=== PATIENT | female | born 1945 | race Caucasian/White ===

== ENCOUNTER → 2016-06-23 | Outpatient (CLI) | payer OTHER ==
[~2016-06-23] MED LIST: AMLODIPINE BESYL5 MG PO; ASMANEX IH; ATIVAN PO; BENZONATATE PO; CELEXA20 MG PO; DARVOCET-N 1001 TAB PO; DIABETIC TUSSIN1 ML PO; DIPHENHYDRAMINE50 M1 PO; FLAGYL PO; LEVAQUIN PO; LEXAPRO PO; LORTAB 5MG PO; LOTREL 5/20 MG1 CAP PO; METHYLPREDNISOLONE PO; NASONEX17 GM; NORVASC PO; OMEPRAZOLE20 M2 PO; OMNICEF300 M1 PO; PATIENT'S PHARMACY; PROAIR HFA8.5 GM IH; PROAIR INH; PROTONIX PO; SINGULAIR PO; TUSSIONEX PENN473 ML PO; WELLBUTRIN PO; ZYRTEC10 M2 PO
--- NOTE | ~2016-06-23 | BD1 ---
[facility] A Service of [facility] & [facility] RADIOLOGY TEXT RESULTS PATIENT: RAHEL ZEPEDA LOCATION: [facility] : 43 UNIT #: [id number] AGE: [address]: Darian Epps MD SEX: F ORDER DR: [id number] [facility] [address] [place], [place] [address] [id number] MR#: [id number] Acc #: [id number] NAME: RAHEL ZEPEDA : 1945 SEX: F STUDY DATE/TIME: 06/23/2016 11:07 UNIT: [facility] ROOM: STUDY DESCRIPTION: BD Dexa Bone Dens 1+ Site Attending Physician: Darian Epps M.D. Referring Physician: Darian Epps M.D. Ordering Physician: Darian Epps M.D. Primary Care Physician: Herber Tomlinson M.D. MEDICAL IMAGING REPORT This report is preliminary unless electronic signature is present EXAM DXA scan, 06/23/2016. HISTORY Status post menopause with no hormone replacement therapy. Osteopenia. Hysterectomy in 2002. Hypertension with blood pressure medication for 30 years. Fracture of wrist in the last 10 years. FINDINGS Bone mineral density in the lumbar spine from L1-L4 is 0.947 g/cm2 which is 0.9 standard deviations below the mean when compared to the young adult reference population which is within the range of normal. This is 1.3 standard deviations above the mean when compared to the age-matched population. Bone mineral density in the left femoral neck was 0.688 g/cm2 which is 1.5 standard deviations below the mean when compared to the young adult reference population which is characteristic of osteopenia. This is 0.5 standard deviations above the mean when compared to the age-matched population. IMPRESSION Bone mineral density in the lumbar spine within the range of normal and within the left hip characteristic of osteopenia. Dictated by... Long Dey M.D. THIS IS AN ELECTRONICALLY VERIFIED REPORT Long Dey M.D. at 06/24/2016 2:25 PM KRT/tmw STS. [facility] A Service of [facility] & [facility] RADIOLOGY TEXT RESULTS PATIENT: RAHEL ZEPEDA LOCATION: [facility] #: [id number] : 43 UNIT #: [id number] AGE: [address]: Darian Epps MD SEX: F ORDER DR: TD: 06/23/2016 15:10 JOB #: [id number] MEDICAL IMAGING REPORT COPY
== END | disposition home or self-care (01) ==
LOC: CWCC 10:52
DX: Z13.820 Encounter for screening for osteoporosis (principal); M25.531 Pain in right wrist; M85.88 Other specified disorders of bone density and structure, other site
CPT/HCPCS: 77080

== ENCOUNTER 2016-09-14 17:24 | Emergency (ER) | payer OTHER ==
--- NOTE | ~2016-09-14 | CT4 ---
[facility] A Service of [facility] & [facility] RADIOLOGY TEXT RESULTS PATIENT: RAHEL ZEPEDA LOCATION: [facility] : 43 UNIT #: [id number] AGE: [address]: Rosalia Mcdonald MD SEX: F ORDER DR: [id number] [facility] [address] [place], [place] [address] [id number] MR#: [id number] Acc #: [id number] NAME: RAHEL ZEPEDA : 1945 SEX: F STUDY DATE/TIME: 09/14/2016 19:06 UNIT: [facility] ROOM: STUDY DESCRIPTION: CT Abd and Pelv Wo Cont Attending Physician: Rosalia Mcdonald M.D. Ordering Physician: Rosalia Mcdonald M.D. Primary Care Physician: Herber Tomlinson M.D. MEDICAL IMAGING REPORT This report is preliminary unless electronic signature is present EXAM CT scan of the abdomen and pelvis without contrast 09/14/2016 HISTORY Pelvic pain, unable to urinate since yesterday. Evaluate for obstructing renal calculus. TECHNIQUE Spiral CT was performed through the abdomen and pelvis without oral or intravenous contrast administration using renal stone protocol. This CT examination was performed with one or more of the following radiation dose reduction techniques: automatic exposure control, adjustment of mA and/or kV according to patient size, and iterative reconstruction. FINDINGS ABDOMEN: There is no obstructing renal or ureteral calculus. There is a 1 mm nonobstructing stone in the mid right kidney. The left kidney is normal. There is fatty infiltration of the liver. The spleen, pancreas, gallbladder and biliary tree and adrenal glands are normal. PELVIS: There is colonic diverticulosis without evidence of diverticulitis. The gut is otherwise unremarkable. No adenopathy is seen. There is no free fluid in the abdomen or pelvis. Images of the lung bases demonstrate a moderate-sized hiatal hernia. IMPRESSION 1. No obstructing renal or ureteral calculus. 1 mm nonobstructing stone right kidney. 2. Fatty infiltration of the liver. 3. Diverticulosis. No evidence of diverticulitis. 4. Moderate-sized hiatal hernia. STS. [facility] A Service of [facility] & [facility] RADIOLOGY TEXT RESULTS PATIENT: RAHEL ZEPEDA LOCATION: [facility] : 43 UNIT #: [id number] AGE: [address]: Rosalia Mcdonald MD SEX: F ORDER DR: Dictated by... Long Dey M.D. THIS IS AN ELECTRONICALLY VERIFIED REPORT Long Dey M.D. at 09/15/2016 10:41 AM ODETTE/ifeanyi TD: 09/15/2016 06:10 JOB #: [id number] MEDICAL IMAGING REPORT Page 1 of 1 COPY
[2016-09-14 18:00] LABS: URINE SOURCE CLEAN CATCH
[2016-09-14 18:19] LABS: URINE APPEARANCE TURBID; URINE BILIRUBIN NEG (NEG); URINE BLOOD 2+ (NEG); URINE COLOR DK YELLOW; URINE GLUCOSE NEG (NEG); URINE KETONE TRACE (NEG); URINE LEUKOCYTE ESTERASE 3+ (NEG); URINE NITRATE NEG (NEG); URINE PROTEIN 2+ (NEG); URINE SPECIFIC GRAVITY 1.023 (1.003-1.035)
[2016-09-14 18:22] LABS: CULTURE INDICATED? YES; URINE SQUAMOUS EPITHELIAL CELL NONE SEEN /[HPF]; UWBCS1 AUWI INNUM (0-5)
[2016-09-14 18:27] LABS: BASOPHIL% 0.6 % (0-2.5); DIFF IND NO; EOSINOPHIL# 0.2 X10e3 (0-0.7); EOSINOPHIL% 2.3 % (0.0-7.0); HEMATOCRIT 40.8 % (35.0-45.0); HEMOGLOBIN 14.1 gm/dL (12.0-16.0); LYMPHOCYTE# 1.3 X10e3 (1.0-3.5); MEAN CELL VOLUME 89.7 FL (83-96); MEAN CORPUSCULAR HEMOGLOBIN 30.9 PG (28-34); MEAN CORPUSCULAR HGB CONC 34.4 g/dL (30-36); MEAN PLATELET VOLUME 7.5 FL (6.5-11.5); MONOCYTE# 0.7 X10e3 (0-1.0); MONOCYTE% 10.5 % (3.0-12.0); NEUTROPHIL# 4.8 X10e3 (1.5-7.1); NEUTROPHIL% 67.6 % (40-75); PLATELET COUNT 208 X10e3 (140-420); RED BLOOD COUNT 4.55 X10e (3.90-5.30); WHITE BLOOD COUNT 7.1 X10e3 (4.0-10.5)
[2016-09-14 18:31] LABS: URINE BACTERIA AUWI 1+ (NEGATIVE); URINE CRYSTALS CALCIUM OXALATE /[HPF]
[2016-09-14 18:37] LABS: ALBUMIN SERUM 4.7 g/dL (3.5-5.0); BILIRUBIN, DIRECT 0.1 mg/dL (0.0-0.2); BILIRUBIN,INDIRECT 0.8 mg/dL (0.0-0.9); BILIRUBIN,TOTAL 0.9 mg/dL (0.2-2.0); CALCIUM SERUM 9.5 mg/dL (8.4-10.2); CREATININE SERUM 0.8 mg/dL (0.6-1.4); GLOM FILT RATE Estimated 73.7 mL/min (>60)
== END 2016-09-14 20:20 | disposition home or self-care (01) ==
LOC: CED 17:24
PROVIDERS: Emergency Medicine
DX: N39.0 Urinary tract infection, site not specified (principal); E78.5 Hyperlipidemia, unspecified; I10 Essential (primary) hypertension; F32.9 Major depressive disorder, single episode, unspecified; Z79.899 Other long term (current) drug therapy; Z88.5 Allergy status to narcotic agent
CPT/HCPCS: 36415; 74176; 80048; 80076; 81003; 85025; 87086; 96361; 96374; 96375; 99284; J2270; J2405